=== PATIENT | male | born 1955 | race Caucasian/White ===

== ENCOUNTER 2016-08-07 16:17 | Emergency (ER) | payer OTHER ==
[2016-08-07 16:27] VITALS: BP 168/102; PULSE 70; RESP 16; TEMP 99.2; O2SAT 94
--- NOTE | 2016-08-07 17:10 | EDPHY ---
H & P Time Seen by Provider: 08/07/16 16:29 HPI/ROS: CHIEF COMPLAINT: Cough and fever HISTORY OF PRESENT ILLNESS: 61-year-old male presents with cough and fever. Onset of myalgias, runny nose and sore throat 1 week ago. He has had a dry cough for 1 week, but now is cough is worsened and is productive of yellowish phlegm. Associated with fever and chills. He hears rhonchi in left upper chest , that clear with coughing. No SOB. REVIEW OF SYSTEMS: Eyes: No drainage ENT: sore throat Respiratory: no shortness of breath Cardiac: No chest pain Gastrointestinal: No nausea, no vomiting, no abdominal pain Genitourinary: no dysuria Musculoskeletal: myalgias Skin: No rash Neurological: mild headache Psychiatric: sad from recent of mother Past Medical/Surgical History: Denies Social History: Works as a hospitalist in [place] Smoking Status: Never smoked Physical Exam: General Appearance: Alert, nontoxic Eyes: Pupils equal and round, no conjunctival injection ENT, Mouth: Mucous membranes moist, pharyngeal erythema Neck: Normal inspection Respiratory: rales at the left base Cardiovascular: Regular rate and rhythm Gastrointestinal: Abdomen is soft and nontender Neurological: A&O, nonfocal, normal gait Skin: Warm and dry, no rash Extremities: normal inspection Psychiatric: Mood and affect normal Constitutional: Initial Vital Signs Temperature (C) 37.3 C 08/07/16 16:23 Heart Rate 70 08/07/16 16:23 Respiratory Rate 16 08/07/16 16:23 Blood Pressure 168/102 H 08/07/16 16:23 O2 Sat (%) 94 08/07/16 16:23 O2 Delivery Mode Room Air Allergies/Adverse Reactions: No Known Allergies Allergy (Unverified 08/07/16 16:22) Home Medications: Medication Instructions Recorded Amoxicillin/Clavulanate Pot 875 mg PO BID #19 tab 08/07/16 [Augmentin 875 MG TAB (RX)] Tylenol 08/07/16 Medical Decision Making - Diagnostics Imaging Results: Chest x-ray independently reviewed by me reveals no acute disease. Imaging: I viewed and interpreted images myself ED Course/Re-evaluation: This patient presents with a clinical diagnosis of pneumonia and probable influenza. He is nontoxic and tolerating oral fluids well. I feel that he is appropriate patient for outpt treatment of pneumonia. Per his friend, an ID doc , he requests Augmentin rx. Differential Diagnosis: Differential diagnosis includes but is not limited to pneumonia, otitis media, peritonsillar abscess, retropharyngeal abscess, meningitis. Departure - Departure Disposition: Home, Routine, Self-Care Clinical Impression: Pneumonia Condition: Good Instructions: Pneumonia (ED) Additional Instructions: Drink plenty of fluids. Tylenol every 4 hours as needed for fever and myalgias. Return for worsening symptoms, shortness of breath or any concerns. Referrals: TAINA VILLASENOR [Other] - As per Instructions Prescriptions: Amoxicillin/Clavulanate Pot [Augmentin 875 MG TAB (RX)] 875 mg PO BID #19 tab
[2016-08-07] MEDS ORDERED: AMOXICILLIN/CLAVULANATE POT 875/125 MG TAB PO ONE (17:23)
== END 2016-08-07 17:12 | disposition home or self-care (01) ==
DX: J18.9 Pneumonia, unspecified organism (principal)